=== PATIENT | male | born 1960 | race African-American/Black ===

== ENCOUNTER 2017-04-21 10:39 | Outpatient (CLI) | payer OTHER ==
[2017-04-21 11:10] LABS: Amphetamine Not Detected (NotDetected); Barbiturates Screen Not Detected (NotDetected); Benzodiazepine Screen Not Detected (NotDetected); Cocaine Metabolite Screen Not Detected (NotDetected); Methadone Not Detected (NotDetected); Methamphetamine Not Detected (NotDetected); Opiate Screen Detected (NotDetected); Phencyclidine (PCP) Not Detected (NotDetected); THC/Cannabinoid Screen Detected (NotDetected); Tricyclic Screen Not Detected (NotDetected)
[2017-04-21 11:11] LABS: Medtox Control Line Valid? VALID (VALID); Oxycodone Screen Not Detected (NotDetected)
--- NOTE | 2017-04-21 12:00 | RAD ---
TWO VIEWS LUMBAR SPINE: Date: 04-21-17 History: Back pain for five years. FINDINGS: There is an IVC filter to the right of midline at the L2-3 level. Five lumbar type vertebral bodies a re present with intact pedicles on frontal imaging. There is no anterolisthesis or retrolisthesis. There is mild disc space narrowing at L4-5 with right lateral osteophyte formation. No acute osseous abnormality. IMPRESSION: Lumbar spine degenerative change as detailed above. POS: [facility]
--- NOTE | 2017-04-21 12:01 | RAD ---
THERE VIEWS CERVICAL SPINE: Date: 04-21-17 History: Cervical spine pain, prior surgery. FINDINGS: There is extensive anterior discectomy and fusion hardware spanning the C3-4, C4-5, C5-6 and C6-7 lev els. There is no radiographic evidence for hardware failure. Vertebral body height and alignment appe ars within normal limits. The open mouth odontoid view demonstrates a normal appearing dens and C1-2 articulation. Mild anterior osteophyte formation noted at C2-3 and C7-T1. IMPRESSION: Post-operative changes as detailed above. No acute findings. POS: [facility]
== END 2017-04-21 10:40 | disposition home or self-care (01) ==
LOC: SCSER 10:39
PROVIDERS: ATTEND Psychiatry & Neurology Neurology
DX: M50.223 Other cervical disc displacement at C6-C7 level (principal); M48.061 Spinal stenosis, lumbar region without neurogenic claudication; Z98.890 Other specified postprocedural states
CPT/HCPCS: 72040; 72100; 80306

== ENCOUNTER 2017-04-28 11:56 | Outpatient (CLI) | payer MEDICARE, MEDICAID ==
--- NOTE | 2017-04-28 15:29 | MRI ---
MRI CERVICAL SPINE: 04/28/2017 HISTORY: Neck pain and back pain for five years. Cervical spine and lumbar spine surgery in the past. COMPARISON: None. TECHNIQUE: Multiplanar, multisequence MR imaging of the cervical spine is provided without contrast. FINDINGS: Extensive anterior diskectomy and fusion hardware is present, spanning the C3-C4 through C6-C7 levels , limiting detailed assessment. Sagittal STIR imaging demonstrates no focal area of osseous marrow e john. There is moderate degenerative change at the atlantoaxial interspace. The craniocervical junction ap pears intact. C2-C3: There id disk desiccation. There is no significant central canal or neural foraminal stenosi s. C3-C4: Mild facet and uncovertebral osteophyte formation noted on the left. Mild left neural forami nal stenosis. No significant central canal or right neural foraminal stenosis. C4-C5: Mild facet and uncovertebral osteophyte formation, left greater than right. Minimal disk ost eophyte complex. Partial effacement of the ventral thecal sac. No significant central canal stenosi s. Mild left neural foraminal stenosis. C5-C6: There is a disk protrusion and associated osteophyte in the left paracentral region with part ial effacement of the ventral thecal sac and a mild degree of central canal stenosis. The cervical c ord at this level demonstrates mild atrophy and demonstrates internal increased T2 signal, suggesting cervical cord myelomalacia. Mild central canal stenosis and mild bilateral neural foraminal stenosi s are noted. C6-C7: There is bilateral facet and uncovertebral osteophyte formation, left greater than right. Th ere is mild disk bulge with mild effacement of the ventral thecal sac and minimal central canal steno sis. There is moderate right and moderate/severe left neural foraminal stenosis. C7-T1: There is facet and uncovertebral osteophyte formation on the left with a moderate degree of l eft neural foraminal stenosis. There is no central canal stenosis. There is mild to moderate right neural foraminal stenosis, on the basis of facet and uncovertebral osteophyte formation. IMPRESSION: Multilevel degenerative and postoperative change within the cervical spine, as described above. Ther e is a focal area of cord atrophy and internal T2 signal intensity within the cervical cord, at C5-C6 , evidence of myelomalacia. POS: [facility]
--- NOTE | 2017-04-28 16:19 | MRI ---
LUMBAR SPINE MRI WITH AND WITHOUT CONTRAST: 04/28/17 CLINICAL HISTORY: Intervertebral disc displacement, lumbar spine. Low back pain. Reference is made to radiographs of [facility] spine 04/21/17. FINDINGS: Lumbar spine vertebral body heights are maintained. Mild disc degenerative narrowing and signal alter ation is present at L4-5 level. No paraspinous soft tissue edema. No acute marrow edema or disc space inflammation. Conus medullaris is normal in morphology and terminates at the L1 level. Postcontrast imaging reveals no pathologic, mass producing enhancement within the vertebral canal. Incidental note of a partially imaged T2 hyperintensity in the medial left kidney indicative of a cys t. There is a moderate sized cyst within the medial aspect of the lower pole right kidney. There is congenital AP diameter narrowing of the vertebral canal on the basis of congenitally shorten ed pedicles. L5-S1: No extrinsic mass effect of significance upon the thecal sac or neural foramina. L4-5: Broad based disc osteophyte complex is present. There is moderate central canal stenosis as thi s is accentuated by the congenitally shortened pedicles. There is mild bilateral neural foraminal benjamin nosis. L3-4: Mild to moderate central canal stenosis with a broad based disc osteophyte complex and mild hector ateral neural foraminal stenosis. L2-3: Mild narrowing of the central canal with a concentric disc bulge. No high grade foraminal compr omise. L1-2: No significant extrinsic mass effect upon thecal sac or neural foramina. There is mild to moderate facet osteoarthritis most notable at the L4-5 level bilaterally. IMPRESSION: Mild degenerative change which is accentuated by a prominent degree of congenital narrowing of the AP diameter of the vertebral canal. Findings are most pronounced at L4-5 with moderate degree of centra l canal stenosis and bilateral neural foraminal stenosis. POS: [facility]
== END 2017-04-28 11:57 | disposition home or self-care (01) ==
LOC: SCSMRI 11:56
PROVIDERS: ATTEND Psychiatry & Neurology Neurology
DX: M51.27 Other intervertebral disc displacement, lumbosacral region (principal); M50.223 Other cervical disc displacement at C6-C7 level; M47.816 Spondylosis without myelopathy or radiculopathy, lumbar region; M47.812 Spondylosis without myelopathy or radiculopathy, cervical region; G95.89 Other specified diseases of spinal cord; M99.83 Other biomechanical lesions of lumbar region; Z98.890 Other specified postprocedural states
CPT/HCPCS: 72141; 72158

== ENCOUNTER 2017-12-04 18:09 | Inpatient (IN) | payer MEDICARE, MEDICAID ==
[~2017-12-04 18:09] MED LIST: ISOVUE-370 76%-LOCM 1 ML ONE
[2017-12-04] MEDS ORDERED: Morphine 4 MG/ML VIAL ONE (19:37)
[2017-12-04 20:03] LABS: CKMB 0.3 ng/mL (0-6.6); Troponin I Less than 0.010 ng/mL (< 0.028)
--- NOTE | 2017-12-04 20:30 | CT ---
CT ABDOMEN AND PELVIS WITH IV CONTRAST: 12/04/17 HISTORY: Abdominal pain. Swelling. FINDINGS: No comparison. Mild atelectasis at the lung bases. Heterogeneous low density mass of the left adrenal gland measures up to 3.2 cm. Peripheral enhancement. Cysts involve each kidney. Inferior vena cava filter is present just below the level of the renal veins. At the level of the marisel ter, clot result in filling defect that extends inferiorly into each iliac vein which is expanded. So me swelling is apparent within the subcutaneous tissues about the right upper thigh. IMPRESSION: Thrombosis of the iliac veins and inferior vena cava to the level of a filter just below the level of the renal veins. Left adrenal mass. Metastatic versus primary neoplasm is of primary concern with a mass this size. Findings were called to Dr. Cortez in the Emergency Department at 2013 hours. Code CR POS: [facility]
[2017-12-04] MEDS ORDERED: Ondansetron ODT 4 MG TAB PO PRN (21:55)
[2017-12-04] MEDS ORDERED: Bisacodyl 5 MG TAB PO PRN (21:55)
[2017-12-04] MEDS ORDERED: Apixaban 5 MG TAB PO SCH (22:15)
[2017-12-04] MEDS ORDERED: Insulin Regular 300 UNITS/3 ML VIAL SC PRN (22:36)
[2017-12-04] MEDS ORDERED: Dextrose 50% Abboject 50 ML SYRINGE SLOW IVP PRN (22:36)
[2017-12-04] MEDS ORDERED: Dextrose 5% in Water 1,000 ML IV PRN (22:36)
[2017-12-05] MEDS ORDERED: Nicotine 21 MG PATCH TD SCH (00:15)
[2017-12-05 00:17] VITALS: BMI 28.5
[2017-12-05] MEDS ORDERED: Ketorolac Tromethamine 30 MG/ML VIAL IVP PRN (02:37)
[2017-12-05] MEDS ORDERED: Acetaminophen 1,000 MG in Premix Bag 1 BAG IVPB PRN (02:37)
[2017-12-05] MEDS: Acetaminophen 325 MG TAB PO PRN (04:50)
--- NOTE | 2017-12-05 07:45 | HP ---
CHIEF COMPLAINT: Bilateral lower extremity pain and swelling. HISTORIAN: The patientchaka. HISTORY OF PRESENT ILLNESS: This is a 56-year-old male with past medical history of recurrent DVTs, diabetes mellitus type 2, chronic back pain, being admitted for bilateral lower extremity pain and swelling. Per the patient, he had a DVT in 2011 and during that time, patient had IVC filter inserted. Patient states that since then he has been doing okay and he has not had any problems; however, in the past couple of days, patient has been having lower extremity swelling and pain, states that is very difficult for him to ambulate due to lower extremity pain, so this prompted the patient to go to the nearby [facility] [place]. From [place] of the abdomen and pelvis were ordered, which showed DVT that was all the way to patient's iliacs; therefore, the patient was transferred and to be evaluated in the hospital. REVIEW OF SYSTEMS: Positive for bilateral lower extremity swelling and pain, constipation, otherwise as documented in the HPI. All other systems were reviewed and are negative. PAST MEDICAL HISTORY: Significant for diabetes mellitus type 2, DVT, status post IVC filter. PAST SURGICAL HISTORY: Cervical back surgery, IVC filter placement in 2011. SOCIAL HISTORY: The patient states that he has been smoking since his 20s. The patient has been smoking 2 packs per day. Patient denies any ethanol use. Patient smokes marijuana. The patient says that he is a . Patient lives at home. FAMILY HISTORY: Reviewed and noncontributory to this visit. ALLERGIES: No known drug allergies. CURRENT MEDICATIONS: 1. The patient takes Levemir, we did not know the dose. 2. Metformin 1000 mg b.i.d. 3. Gabapentin 800 t.i.d. PHYSICAL EXAMINATION: VITAL SIGNS: In the ED, the patient's blood pressure was 134/86, pulse 86, respiratory rate 18, temperature 99.2, O2 sats 99 on room air. GENERAL: The patient is lying in bed, very anxious, who denies cigarettes. Patient is alert, oriented x3, not in acute distress, able to speak in full sentences. HEENT: Normocephalic, atraumatic. Pupils are equally round and reactive to light. Extraocular muscles are intact. No scleral icterus. Trachea is midline. NECK: No JVD. Supple. Mucous membranes are moist. LUNGS: Clear to auscultation bilaterally. No wheezing, no rales, no rhonchi is appreciated. CARDIAC: Positive S1, S2. No murmurs, no rubs, no gallops appreciated. ABDOMEN: Patient has tenderness at the suprapubic region and at the right and left lower quadrants, patient has some guarding. Nondistended abdomen. Soft, positive bowel sounds in all quadrants. EXTREMITIES: 5/5 upper extremity strength, good radial pulses bilaterally. Lower extremity: Patient has 2+ nonpitting edema at the left lower extremity and 4+ nonpitting edema at the right lower extremity. There is tenderness bilaterally at the lower extremities with palpation. There is mild erythema noted at the right lower extremity. NEUROLOGIC: Cranial nerves II through XII grossly intact. No neurological deficits noted. SKIN: Warm, dry, and intact. ED COURSE: In the ED, the patient was started on Eliquis, morphine, and normal saline. IMAGING: CT of the abdomen showed thrombosis of the iliac veins and inferior vena cava to the level of filter just below the level of the renal veins, left adrenal mass seen, size which was 3.2 cm. LABORATORY DATA: Patient's labs were benign except for glucose which was a little elevated this morning at 261. ASSESSMENT AND PLAN: 1. This is a 56-year-old male with medical history that significant for deep vein thrombosis, status post IVC filter placement, being admitted for bilateral lower extremity pain due to deep vein thrombosis. At this point, the patient has been started on anticoagulation. We have consulted Cardiovascular Surgery. We will follow up with cardiovascular surgeon for his recommendations. The patient is currently in significant pain; therefore, we will give pain medication p.r.n. for patient's pain. 2. Adrenal mass: The patient was found to have adrenal mass of 3.[address] of the abdomen and pelvis and is very concerning for possible malignancy versus a primary neoplasm. Therefore, at this point, a referral consulted Urology for possible biopsy of this mass, I think IR would be better to also look at this mass. We will follow up on their recommendations. 3. History of diabetes mellitus. We will continue patient on insulin sliding scale and his home medications. 4. Constipation. We started the patient on medication to help the patient with his bowel movement. 5. Tobacco abuse. We have explained to the patient for the importance of quitting tobacco smoking. Patient states that it is very difficult, but he is going to try and we will start the patient on nicotine patch. 6. Deep venous thrombosis and gastrointestinal prophylaxis. MTDD
[2017-12-05] MEDS: Docusate 100 MG CAP PO SCH ×2 (08:12→19:42)
[2017-12-05] MEDS: HumaLOG 300 UNITS/3 ML VIAL SC PRN ×3 (08:12→16:05)
[2017-12-05] MEDS ORDERED: Enoxaparin Sodium 60 MG/0.6 ML SYRINGE SC STA (10:26)
[2017-12-05] MEDS: Ketorolac Tromethamine 30 MG/ML VIAL IVP PRN ×2 (10:43→19:43)
[2017-12-05] MEDS ORDERED: Enoxaparin Sodium 100 MG/ML SYRINGE SC SCH (11:00)
[2017-12-05] MEDS ORDERED: Lorazepam 2 MG/ML VIAL SLOW IVP PRN (11:04)
--- NOTE | 2017-12-05 11:21 | CON ---
DATE OF CONSULTATION: 12/05/2017 HISTORY OF PRESENT ILLNESS: This is a 56-year-old gentleman with a history of chronic back problems who in 2011 was found to have DVT prior to having a back surgery. He gave himself Lovenox injections for a short period of time and then a filter was placed and then he had his back surgery. He has be en having some low back discomfort for about 2 months; however, the past few days has noticed swellin g in his lower extremities, right worse than left. CT scan done in [place] showed a thrombus in the IVC and iliac veins and he was transferred here. PAST MEDICAL AND SURGICAL HISTORY: Includes diabetes mellitus, long-term smoking history, previous b ack surgery and IVC filter placement. He also has type 2 diabetes mellitus. SOCIAL HISTORY: He smokes 2 packs a day. He is a , lives at home and moved here from [place] . He sees Dr. Justice and PA. MEDICATIONS: At home include metformin, gabapentin, and Levemir. PHYSICAL EXAMINATION: GENERAL: Alert, cooperative gentleman in mild discomfort in lower extremities, primarily the right h e says. NECK: No carotid bruits, no adenopathy. LUNGS: Clear to auscultation anteriorly. CARDIAC: Regular rate and rhythm. No murmurs. ABDOMEN: Mild discomfort in the lower abdomen to palpation. EXTREMITIES: Lower extremities: He has mild edema of the left lower extremity and moderate edema of the right lower extremity including a thigh, most prominent around the knee and less so at the foot level. He has a palpable left popliteal pulse, but no pedal pulses in either foot. I cannot feel a right popliteal pulse, but he does have significant edema here making that difficult to palpate, gerald g with tenderness to deep palpation. Both feet are warm with good capillary fill. ASSESSMENT AND PLAN: At this time, the patient requires Lovenox and switched to NOAC and then long-t erm anticoagulation for this problem. No indication for thrombolysis. I also discussed smoking cess ation with the patient. In the workup of his swelling, he was noted to have a left adrenal mass whic h is fairly sizable and a CT scan of his chest reveals no obvious lung cancer as a possible cause for metastatic disease.
--- NOTE | 2017-12-05 11:35 | PDOC.PN ---
- Subjective Encounter Start Date: 12/05/17 Encounter Start Time: 10:00 Subjective: c/o pain in right LE with swelling -: no sob - Objective Resuscitation Status: Resuscitation Status FULL:Full Resuscitation MAR Reviewed: Yes Vital Signs & Weight: Vital Signs (12 hours) Temp Pulse Resp BP BP Pulse Ox 12/05/17 08:15 99.3 F 81 20 12/05/17 07:21 99.3 F 81 20 111/69 98 12/05/17 04:40 99.9 F H 85 18 113/66 97 12/05/17 00:18 98.7 F 83 20 Weight Weight 210 lb 6.4 oz I&O: 12/04/17 12/05/17 12/06/17 06:59 06:59 06:59 Intake Total 480 200 Balance 480 200 Additional Labs: Accuchecks 12/05/17 12/05/17 12/04/17 11:13 07:31 23:31 POC Glucose 223 H 216 H 261 H Phys Exam - Physical Examination HEENT: PERRLA, moist MMs Neck: no JVD, supple Respiratory: no wheezing, no rales Cardiovascular: RRR, no significant murmur Gastrointestinal: soft, non-tender, positive bowel sounds Musculoskeletal: pulses present Right LE edema Neurological: non-focal, moves all 4 limbs Psychiatric: normal affect, A&O x 3 Dx/Plan (1) DVT (deep venous thrombosis) Code(s): I82.409 - ACUTE EMBOLISM AND THOMBOS UNSP DEEP VN UNSP LOWER EXTREMITY Status: Acute Qualifiers: DVT location: lower extremity Affected thrombotic vein of extremity: iliac Chronicity: acute Laterality: bilateral Qualified Code(s): I82.423 - Acute embolism and thrombosis of iliac vein, bilateral (2) ivc filter with thrombosis Status: Acute (3) Left adrenal mass Code(s): E27.9 - DISORDER OF ADRENAL GLAND, UNSPECIFIED Status: Acute (4) DM type 2 (diabetes mellitus, type 2) Status: Chronic Qualifiers: Diabetes mellitus assisted insulin use: without termite control technician use Diabetes mellitus complication status: with unspecified complications Qualified Code(s) : E11.8 - Type 2 diabetes mellitus with unspecified complications (5) Tobacco abuse Code(s): Z72.0 - TOBACCO USE Status: Chronic - Plan for MRI adrenal protocol, is not accessible for percut Bx by IR -: lovenox q12h, will switch to noac on discharge -: has large thrombus burden -: hemodynamically stable -: change status to inpatient * . continue lantus, hold metformin for today D/w and urologist . Review of Systems - Medications/Allergies Allergies/Adverse Reactions: Allergies Allergy/AdvReac Type Severity Reaction Status Date / Time No Known Drug Allergies Allergy Verified 12/05/17 00:03 Medications: Current Medications Acetaminophen (Tylenol) 650 mg PO Q4H PRN PRN Reason: Headache/Fever or Pain Last Admin: 12/05/17 04:50 Dose: 650 mg Bisacodyl (Dulcolax) 10 mg PO DAILYPRN PRN PRN Reason: Constipation Last Admin: 12/05/17 08:12 Dose: 10 mg Dextrose/Water (Dextrose 50%) 25 gm SLOW IVP PRN PRN PRN Reason: Hypoglycemia Docusate Sodium (Colace) 100 mg PO BID NIKKY Last Admin: 12/05/17 08:12 Dose: 100 mg Enoxaparin Sodium (Lovenox) 90 mg SC NOW NIKKY Stop: 12/05/17 12:00 Last Admin: 12/05/17 11:21 Dose: 90 mg Enoxaparin Sodium (Lovenox) 90 mg SC 0900,2100 NIKKY Glucagon (Glucagon) 1 mg IM PRN PRN PRN Reason: Hypoglycemia Dextrose/Water (D5w) 1,000 mls @ 0 mls/hr IV .Q0M PRN PRN Reason: Hypoglycemia Acetaminophen 1,000 mg/ Device 100 mls @ 400 mls/hr IVPB Q6H PRN PRN Reason: Mild Pain (1-3) Stop: 12/06/17 02:38 Insulin Human Lispro (Humalog) 0 units SC .MILD SLIDING SCALE PRN PRN Reason: Mild Correctional Scale Last Admin: 12/05/17 11:21 Dose: 3 unit Insulin Human Regular (Humulin R) 0 units SC .MILD SLIDING SCALE PRN PRN Reason: Mild Correctional Scale Ketorolac Tromethamine (Toradol) 15 mg IVP Q6H PRN PRN Reason: Moderate Pain (4-6) Stop: 12/10/17 07:48 Last Admin: 12/05/17 10:43 Dose: 15 mg Lactulose (Lactulose) 20 gm PO DAILYPRN PRN PRN Reason: Constipation Lorazepam (Ativan) 1 mg SLOW IVP Q4H PRN PRN Reason: Anxiety/Agitation Nicotine (Nicoderm Patch) 21 mg TD Q24HR NIKKY Ondansetron HCl (Zofran Odt) 4 mg PO Q6H PRN PRN Reason: Nausea/Vomiting Last Admin: 12/05/17 08:12 Dose: 4 mg Sodium Chloride (Flush - Normal Saline) 10 ml IVF Q12HR NIKKY Last Admin: 12/05/17 08:14 Dose: 10 ml Sodium Chloride (Flush - Normal Saline) 10 ml IVF PRN PRN PRN Reason: Saline Flush
--- NOTE | 2017-12-05 12:23 | CT ---
CHEST CT SCAN WITHOUT IV CONTRAST: HISTORY: A 56-year-old male with a history of abdominal pain. History of remote DVT with IVC filter in place. FINDINGS: Left lower extremity swelling and pain. There are some old granuloma calcifications within the media stinum and left upper lobe. There is no mediastinal mass or adenopathy. No pleural effusion or heidi cardial effusion. There is a 3 cm diameter left infrarenal mass which has low attenuation, evidence for an adenoma. There is some minimal residual contrast in the renal collecting systems from prior C T last night. Small left renal cyst. There are some scattered linear parenchymal changes in both shireen ngs having more a chronic appearance. No evidence for metastasis. IMPRESSION: Scattered linear and minimal pleural-based parenchymal changes, evidence for some chronic lung change . Old granulomatous disease. No mediastinal mass or adenopathy. No pulmonary metaphysis or pleural effusion or pericardial effusion. A 3 cm diameter left adrenal mass, evidence for an adenoma. POS: [facility]
--- NOTE | 2017-12-05 14:32 | CON ---
DATE OF CONSULTATION: 12/05/2017 REASON FOR CONSULTATION: Left adrenal mass. HISTORY OF PRESENT ILLNESS: Mr. Ruffin is a 56-year-old male with a past medical history significan t for recurrent deep venous thrombosis of his lower extremities, type 2 diabetes mellitus, extensive smoking history, chronic back pain, who was admitted for bilateral lower extremity pain and swelling. The patient reportedly was diagnosed with a DVT prior to a spine surgery in 2011. At that time, he had an IVC filter placed. Over the past couple of days, the patient has had worsening lower extremi ty swelling and pain and has had difficulty ambulating. The patient presented to an urgent care [facility] in [place], as he currently lives in [place]. A CT of the abdomen and pelvis was perform ed, which demonstrated a DVT involving the patient's iliacs all the way down distally on the right si de greater than the left. He was transferred to [facility] in [place], [place]. Inci dentally, there was also a 3.2 cm peripherally enhancing left adrenal mass noted on CT abdomen and pe lvis with contrast. Urology was consulted for further evaluation. The patient was admitted to the hospitalist service. He had a CT of the chest performed, which repor tedly was negative for any pulmonary nodules or other concerning findings. The patient reports mild right-sided pelvic pain, but otherwise no abdominal pain. He continues to have right lower extremity swelling and pain. He has no lower urinary tract symptoms. No family history of genitourinary darshan gnancy to his knowledge. No gross hematuria. No other complaints at this time. REVIEW OF SYSTEMS: Full 12-point review of systems was performed and was negative other than that me ntioned in the HPI. PAST MEDICAL HISTORY: 1. Type 2 diabetes mellitus. 2. Recurrent deep venous thrombosis. PAST SURGICAL HISTORY: 1. Spine surgery of unknown type. 2. IVC filter placement in 2011. SOCIAL HISTORY: The patient has been smoking 2 packs per day since his 20s; he continues to smoke 2 packs per day. No alcohol. Patient lives at home alone and he is disabled. Does not currently work . FAMILY HISTORY: Noncontributory. ALLERGIES: No known drug allergies. OUTPATIENT MEDICATIONS: 1. Levemir. 2. Metformin 1000 mg p.o. b.i.d. 3. Gabapentin 800 mg p.o. t.i.d. PHYSICAL EXAMINATION: VITAL SIGNS: Blood pressure 134/86, pulse 86, respirations 18, temperature 99.2, oxygen saturation 9 9% on room air. GENERAL: He is alert and oriented x3 in no apparent distress. HEENT: Normocephalic, atraumatic. NECK: Supple, no masses or lymphadenopathy. CARDIOVASCULAR: Regular rate and rhythm. PULMONARY: Breathing unlabored. No wheezing. ABDOMEN: Soft, nontender/nondistended, mild right low pelvic tenderness to deep palpation, no reboun d or guarding. GENITOURINARY: Uncircumcised penis without concerning lesion. Scrotum normal. Testes and bilateral epididymis are palpably normal without masses. EXTREMITIES: A 2+ nonpitting edema to the right lower extremity along its entire length, mild nonpit ting edema to the left lower extremity. NEUROLOGIC: No focal deficits. RADIOLOGY DATA: CT of the abdomen and pelvis with contrast was reviewed. There is a blood clot of t he iliac veins and IVC to the level of the IVC filter just below the level of the renal veins. A per ipherally enhancing left adrenal mass, 3.2 cm in diameter, was noted as well. There is rather low de nsity centrally in this mass. ASSESSMENT AND PLAN: This is a 56-year-old male with extensive deep venous thrombosis extending up t he iliacs into his inferior vena cava as well as incidentally noted 3.2 cm left adrenal mass. PLAN: I discussed the natural history and clinical implications of adrenal masses with the patient i n detail. I discussed potential etiologies including benign adrenal adenoma as well as both primary and metastatic malignancy. I discussed the case with the patient's primary team as well as Radiology . Biopsy of this lesion would be difficult given its location. Given the fact that it is unclear wh ether or not this meets criteria to be an adrenal adenoma, we will perform an MRI adrenal mass protoc ol. If this is determined to be an adenoma, this can be monitored. No intervention will be necessar y. If more concerning for malignancy, the patient may require surgical intervention. The patient wi ll require systemic anticoagulation for his current extensive deep venous thrombosis, timing of which will depend on findings of the MRI. Thank you for allowing me to participate in the care of this patient. We will continue to follow.
[2017-12-05] MEDS: Gabapentin 400 MG CAP PO SCH ×2 (16:02→19:42)
[2017-12-05] MEDS: Insulin Glargine 34 UNITS in Pre-Filled Syringe 1 EACH SC SCH (19:42)
[2017-12-05] MEDS: Enoxaparin Sodium 100 MG/ML SYRINGE SC SCH (19:42)
[2017-12-05] MEDS: Nicotine 21 MG PATCH TD SCH (19:44)
[2017-12-05] MEDS ORDERED: INSULIN DETEMIR 34 UNIT SQ SCH (21:00)
[2017-12-05] MEDS ORDERED: Enoxaparin Sodium 60 MG/0.6 ML SYRINGE SC SCH (21:00)
[2017-12-06] MEDS: Ketorolac Tromethamine 30 MG/ML VIAL IVP PRN ×2 (03:17→14:36)
[2017-12-06] MEDS: Gabapentin 400 MG CAP PO SCH ×3 (08:53→20:00)
[2017-12-06] MEDS: busPIRone HCl 5 MG TAB PO SCH (08:53)
[2017-12-06] MEDS: Docusate 100 MG CAP PO SCH ×2 (08:54→20:00)
[2017-12-06] MEDS: Enoxaparin Sodium 100 MG/ML SYRINGE SC SCH ×2 (09:33→20:04)
--- NOTE | 2017-12-06 10:53 | PDOC.PN ---
- Subjective Encounter Start Date: 12/06/17 Encounter Start Time: 08:45 Subjective: right leg pain is slightly better but still hurts -: no sob or chest pain - Objective Resuscitation Status: Resuscitation Status FULL:Full Resuscitation MAR Reviewed: Yes Vital Signs & Weight: Vital Signs (12 hours) Temp Pulse Resp BP Pulse Ox 12/06/17 08:15 99.3 F 73 18 108/71 99 12/05/17 23:07 98.7 F Weight Weight 210 lb 6.4 oz I&O: 12/05/17 12/06/17 12/07/17 06:59 06:59 06:59 Intake Total 480 810 Output Total 650 Balance 480 160 Additional Labs: Accuchecks 12/06/17 12/05/17 12/05/17 04:26 20:15 16:04 POC Glucose 165 H 209 H 205 H 12/05/17 11:13 POC Glucose 223 H Phys Exam - Physical Examination HEENT: PERRLA, moist MMs Neck: no JVD, supple Respiratory: no wheezing, no rales Cardiovascular: RRR, no significant murmur Gastrointestinal: soft, non-tender, positive bowel sounds Musculoskeletal: pulses present, edema present right LE severe edema is slowly receding, less tender this am than yesterda Neurological: non-focal, moves all 4 limbs Psychiatric: normal affect, A&O x 3 Dx/Plan (1) DVT (deep venous thrombosis) Code(s): I82.409 - ACUTE EMBOLISM AND THOMBOS UNSP DEEP VN UNSP LOWER EXTREMITY Status: Acute Qualifiers: DVT location: lower extremity Affected thrombotic vein of extremity: iliac Chronicity: acute Laterality: bilateral Qualified Code(s): I82.423 - Acute embolism and thrombosis of iliac vein, bilateral (2) ivc filter with thrombosis Status: Acute (3) Left adrenal mass Code(s): E27.9 - DISORDER OF ADRENAL GLAND, UNSPECIFIED Status: Acute (4) DM type 2 (diabetes mellitus, type 2) Status: Chronic Qualifiers: Diabetes mellitus director long term care insulin use: without detention use Diabetes mellitus complication status: with unspecified complications Qualified Code(s) : E11.8 - Type 2 diabetes mellitus with unspecified complications (5) Tobacco abuse Code(s): Z72.0 - TOBACCO USE Status: Chronic - Plan is on lovenox full dose q12h -: MRI adrenal gland results pending -: to ambulate in hallway as tolerated -: may wear rolo hose (will need a larger size) to reduce edema and pain a bit -: is on toradol for pain, continue lantus and neurontin, add asp * . Review of Systems - Medications/Allergies Allergies/Adverse Reactions: Allergies Allergy/AdvReac Type Severity Reaction Status Date / Time No Known Drug Allergies Allergy Verified 12/05/17 00:03 Medications: Current Medications Acetaminophen (Tylenol) 650 mg PO Q4H PRN PRN Reason: Headache/Fever or Pain Last Admin: 12/05/17 04:50 Dose: 650 mg Bisacodyl (Dulcolax) 10 mg PO DAILYPRN PRN PRN Reason: Constipation Last Admin: 12/05/17 08:12 Dose: 10 mg Buspirone HCl (Buspar) 5 mg PO DAILY [facility] Last Admin: 12/06/17 08:53 Dose: 5 mg Dextrose/Water (Dextrose 50%) 25 gm SLOW IVP PRN PRN PRN Reason: Hypoglycemia Docusate Sodium (Colace) 100 mg PO BID [facility] Last Admin: 12/06/17 08:54 Dose: 100 mg Enoxaparin Sodium (Lovenox) 90 mg SC 0900,2100 [facility] Last Admin: 12/06/17 09:33 Dose: 90 mg Gabapentin (Neurontin) 800 mg PO TID [facility] Last Admin: 12/06/17 08:53 Dose: 800 mg Glucagon (Glucagon) 1 mg IM PRN PRN PRN Reason: Hypoglycemia Dextrose/Water (D5w) 1,000 mls @ 0 mls/hr IV .Q0M PRN PRN Reason: Hypoglycemia Insulin Glargine 34 units/ (Miscellaneous Medication) 0.34 mls @ 0 mls/hr SC [facility] Last Admin: 12/05/17 19:42 Dose: 0.34 mls Insulin Human Lispro (Humalog) 0 units SC .MILD SLIDING SCALE PRN PRN Reason: Mild Correctional Scale Last Admin: 12/05/17 16:05 Dose: 3 unit Insulin Human Regular (Humulin R) 0 units SC .MILD SLIDING SCALE PRN PRN Reason: Mild Correctional Scale Ketorolac Tromethamine (Toradol) 15 mg IVP Q6H PRN PRN Reason: Moderate Pain (4-6) Stop: 12/10/17 07:48 Last Admin: 12/06/17 03:17 Dose: 15 mg Lactulose (Lactulose) 20 gm PO DAILYPRN PRN PRN Reason: Constipation Lorazepam (Ativan) 1 mg SLOW IVP Q4H PRN PRN Reason: Anxiety/Agitation Nicotine (Nicoderm Patch) 21 mg TD Q24HR [facility] Last Admin: 12/05/17 19:44 Dose: Not Given Ondansetron HCl (Zofran Odt) 4 mg PO Q6H PRN PRN Reason: Nausea/Vomiting Last Admin: 12/05/17 08:12 Dose: 4 mg Sodium Chloride (Flush - Normal Saline) 10 ml IVF Q12HR [facility] Last Admin: 12/06/17 09:34 Dose: 10 ml Sodium Chloride (Flush - Normal Saline) 10 ml IVF PRN PRN PRN Reason: Saline Flush
[2017-12-06 12:14] LABS: #Basophils 0.1 thou/uL (0.0-0.2); #Eosinphils 0.4 thou/uL (0.0-0.7); #Lymphocytes 2.3 thou/uL (1.20-3.40); #Monocytes 0.6 thou/uL (0.11-0.59); #Neutrophils 4.6 thou/uL (1.40-6.50); %Basophils 0.7 % (0.0-1.0); %Eosinophils 4.5 % (0.0-10.0); %Lymphocytes 29.3 % (21.0-51.0); %Monocytes 7.1 % (0.0-10.0); %Neutrophils 58.4 % (42.0-75.0); Hemoglobin 11.1 g/dL (14.0-18.0); Mean Corpuscular HGB CONC 34.6 g/dL (32.0-36.0); Mean Corpuscular Hemoglobin 32.4 pg (27.0-31.0); Mean Corpuscular Volume 93.6 fL (78.0-98.0); Platelet Count 226 thou/uL (130-400); RBC Distribution Width 11.9 % (11.5-14.5); Red Blood Cell (RBC) Count 3.42 mill/uL (4.70-6.10); White Blood Cell (WBC) Count 7.8 thou/uL (4.8-10.8)
[2017-12-06 12:21] LABS: INR-International Normal Ratio 1.1; PTT 46.6 SEC (22.9-36.1)
[2017-12-06 12:32] LABS: Anion Gap 12 mmol/L (10-20); BUN (Urea Nitrogen) 21 mg/dL (8.4-25.7); Calc. Creatinine Clearance 113 mL/min (70-130); Calcium 9.3 mg/dL (7.8-10.44); Carbon Dioxide 26 mmol/L (22-29); Chloride 102 mmol/L (98-107); Estimated GFR-MDRD Greater than 90; Glucose 162 mg/dL (70-105); Potassium 3.8 mmol/L (3.5-5.1); Sodium 136 mmol/L (136-145)
[2017-12-06] MEDS ORDERED: Bisacodyl 10 MG SUPP PR PRN (14:38)
[2017-12-06] MEDS ORDERED: Fleet Enema 133 ML BOT PR SCH (14:45)
[2017-12-06] MEDS: HumaLOG 300 UNITS/3 ML VIAL SC PRN (17:44)
[2017-12-06] MEDS: Nicotine 21 MG PATCH TD SCH (20:00)
[2017-12-06] MEDS: Insulin Glargine 34 UNITS in Pre-Filled Syringe 1 EACH SC SCH (20:01)
[2017-12-07] MEDS: Acetaminophen 325 MG TAB PO PRN ×2 (00:38→21:13)
[2017-12-07] MEDS: Ketorolac Tromethamine 30 MG/ML VIAL IVP PRN ×3 (00:43→18:24)
[2017-12-07 05:28] LABS: Anion Gap 12 mmol/L (10-20); BUN (Urea Nitrogen) 22 mg/dL (8.4-25.7); Calc. Creatinine Clearance 97 mL/min (70-130); Carbon Dioxide 25 mmol/L (22-29); Chloride 103 mmol/L (98-107); Estimated GFR-MDRD 79; Glucose 101 mg/dL (70-105); Potassium 3.9 mmol/L (3.5-5.1); Sodium 136 mmol/L (136-145)
[2017-12-07] MEDS: Enoxaparin Sodium 100 MG/ML SYRINGE SC SCH (08:37)
[2017-12-07] MEDS: Gabapentin 400 MG CAP PO SCH ×3 (08:37→21:14)
[2017-12-07] MEDS: busPIRone HCl 5 MG TAB PO SCH (08:37)
[2017-12-07] MEDS: Docusate 100 MG CAP PO SCH ×2 (08:38→21:16)
[2017-12-07] MEDS: Polyethylene Glycol 3350 17 GM Packet PO SCH (08:38)
--- NOTE | 2017-12-07 10:23 | MRI ---
MRI ABDOMEN WITH AND WITHOUT IV CONTRAST: HISTORY: Left adrenal mass, abnormal CT scan of 12/04/17; abdominal pain. FINDINGS: Correlation is made with the CT scan of the abdomen and pelvis dated 12/04/17. There are a couple of punctate cysts in the posterior segment of the right lobe of the liver. Bilate ral renal cysts are present. No abnormal biliary ductal dilatation is seen. There is a 7 mm cyst in the posterior aspect of the tail of the pancreas. There is an 8 mm tiny nodule arising from the lateral limb of the right adrenal gland with loss of si gnal on the [id number] images, consistent with a benign adenoma. The 3.2 cm left adrenal mass also demonstrates minimal loss on the [id number] images with an adrenal to spleen CSI ratio of 0.45 and an adrenal signal intensity index of 54.5%, consistent with a benign lipid-rich adenoma. No free fluid or lymphadenopathy is seen. There is artifact from an IVC filter. The gallbladder is normal. IMPRESSION: 1. Liver and renal cysts. 2. A 7 mm cyst in the tail of the pancreas. A followup exam should be obtained in 6 months. 3. Bilateral adrenal adenomas. CODE T POS: [facility]
--- NOTE | 2017-12-07 13:45 | PDOC.PN ---
- Subjective Encounter Start Date: 12/07/17 Encounter Start Time: 11:10 Subjective: right leg pain and swelling is getting better, no sob -: has ambulated a bit in the hallway - Objective Resuscitation Status: Resuscitation Status FULL:Full Resuscitation MAR Reviewed: Yes Vital Signs & Weight: Vital Signs (12 hours) Temp Pulse Resp BP Pulse Ox 12/07/17 11:32 98.2 F 81 18 135/83 97 12/07/17 08:07 98.7 F 70 18 120/80 100 12/07/17 08:00 98.7 F 70 18 100 Weight Weight 210 lb 6.4 oz I&O: 12/06/17 12/07/17 12/08/17 06:59 06:59 06:59 Intake Total 810 1520 240 Output Total 650 450 Balance 160 1070 240 Result Diagrams: 12/06/17 12:01 12/07/17 04:41 Additional Labs: Accuchecks 12/07/17 12/07/17 12/06/17 11:34 04:31 20:22 POC Glucose 126 H 113 H 169 H 12/06/17 16:29 POC Glucose 236 H Phys Exam - Physical Examination HEENT: PERRLA, moist MMs Neck: no JVD, supple Respiratory: no wheezing, no rales Cardiovascular: RRR, no significant murmur Gastrointestinal: soft, non-tender, positive bowel sounds Musculoskeletal: pulses present, edema present Neurological: non-focal, moves all 4 limbs Psychiatric: normal affect, A&O x 3 Dx/Plan (1) DVT (deep venous thrombosis) Code(s): I82.409 - ACUTE EMBOLISM AND THOMBOS UNSP DEEP VN UNSP LOWER EXTREMITY Status: Acute Qualifiers: DVT location: lower extremity Affected thrombotic vein of extremity: iliac Chronicity: acute Laterality: bilateral Qualified Code(s): I82.423 - Acute embolism and thrombosis of iliac vein, bilateral (2) ivc filter with thrombosis Status: Acute (3) Left adrenal mass Code(s): E27.9 - DISORDER OF ADRENAL GLAND, UNSPECIFIED Status: Acute Comment: has b/l adrenal adenomas per MRI (4) DM type 2 (diabetes mellitus, type 2) Status: Chronic Qualifiers: Diabetes mellitus mcc insulin use: without mcc use Diabetes mellitus complication status: with unspecified complications Qualified Code(s) : E11.8 - Type 2 diabetes mellitus with unspecified complications (5) Tobacco abuse Code(s): Z72.0 - TOBACCO USE Status: Chronic - Plan on lovenox full dose, will start eliquis this evening -: MRI results noted, has b/l adrenal adenomas -: on asp, buspar and lantus -: to ambulate in hallway, rolo hose to right LE * . Review of Systems - Medications/Allergies Allergies/Adverse Reactions: Allergies Allergy/AdvReac Type Severity Reaction Status Date / Time No Known Drug Allergies Allergy Verified 12/05/17 00:03 Medications: Current Medications Acetaminophen (Tylenol) 650 mg PO Q4H PRN PRN Reason: Headache/Fever or Pain Last Admin: 12/07/17 00:38 Dose: 650 mg Aspirin (Aspirin Chewable) 81 mg PO DAILY [facility] Last Admin: 12/07/17 08:37 Dose: 81 mg Bisacodyl (Dulcolax) 10 mg PO DAILYPRN PRN PRN Reason: Constipation Last Admin: 12/05/17 08:12 Dose: 10 mg Bisacodyl (Dulcolax) [address] Q8H PRN PRN Reason: Constipation Buspirone HCl (Buspar) 5 mg PO DAILY [facility] Last Admin: 12/07/17 08:37 Dose: 5 mg Dextrose/Water (Dextrose 50%) 25 gm SLOW IVP PRN PRN PRN Reason: Hypoglycemia Docusate Sodium (Colace) 100 mg PO BID [facility] Last Admin: 12/07/17 08:38 Dose: 100 mg Enoxaparin Sodium (Lovenox) 90 mg SC 0900,2100 [facility] Last Admin: 12/07/17 08:37 Dose: 90 mg Gabapentin (Neurontin) 800 mg PO TID [facility] Last Admin: 12/07/17 08:37 Dose: 800 mg Glucagon (Glucagon) 1 mg IM PRN PRN PRN Reason: Hypoglycemia Dextrose/Water (D5w) 1,000 mls @ 0 mls/hr IV .Q0M PRN PRN Reason: Hypoglycemia Insulin Glargine 34 units/ (Miscellaneous Medication) 0.34 mls @ 0 mls/hr SC HS [facility] Last Admin: 12/06/17 20:01 Dose: 0.34 mls Insulin Human Lispro (Humalog) 0 units SC .MILD SLIDING SCALE PRN PRN Reason: Mild Correctional Scale Last Admin: 12/06/17 17:44 Dose: 4 unit Insulin Human Regular (Humulin R) 0 units SC .MILD SLIDING SCALE PRN PRN Reason: Mild Correctional Scale Ketorolac Tromethamine (Toradol) 15 mg IVP Q6H PRN PRN Reason: Moderate Pain (4-6) Stop: 12/10/17 07:48 Last Admin: 12/07/17 12:37 Dose: 15 mg Lactulose (Lactulose) 20 gm PO DAILYPRN PRN PRN Reason: Constipation Last Admin: 12/06/17 14:41 Dose: 20 gm Lorazepam (Ativan) 1 mg SLOW IVP Q4H PRN PRN Reason: Anxiety/Agitation Nicotine (Nicoderm Patch) 21 mg TD Q24HR [facility] Last Admin: 12/06/17 20:00 Dose: 21 mg Ondansetron HCl (Zofran Odt) 4 mg PO Q6H PRN PRN Reason: Nausea/Vomiting Last Admin: 12/05/17 08:12 Dose: 4 mg Polyethylene Glycol (Miralax) 17 gm PO DAILY [facility] Last Admin: 12/07/17 08:38 Dose: 17 gm Sodium Chloride (Flush - Normal Saline) 10 ml IVF Q12HR [facility] Last Admin: 12/07/17 08:38 Dose: 10 ml Sodium Chloride (Flush - Normal Saline) 10 ml IVF PRN PRN PRN Reason: Saline Flush
[2017-12-07] MEDS: HumaLOG 300 UNITS/3 ML VIAL SC PRN (18:35)
[2017-12-07] MEDS: Apixaban 5 MG TAB PO SCH (21:14)
[2017-12-07] MEDS: Insulin Glargine 34 UNITS in Pre-Filled Syringe 1 EACH SC SCH (21:22)
[2017-12-07] MEDS: Nicotine 21 MG PATCH TD SCH (22:09)
--- NOTE | 2017-12-07 22:49 | PRG ---
DATE OF SERVICE: 12/07/2017 SUBJECTIVE: Mr. Newman is doing well. Denies complaints. He reports the pain is improving secon felix to blood clot. He had an MRI of his abdomen performed over the weekend. He has no other compla ints. OBJECTIVE: VITAL SIGNS: Temperature is 98.7, heart rate 70, respirations 18, oxygen saturation 100% on room air . GENERAL: Alert and oriented x3, no apparent distress. CARDIOVASCULAR: Regular rate and rhythm. PULMONARY: Breathing unlabored. ABDOMEN: Soft, nontender/nondistended. EXTREMITIES: Right lower extremity 4+ nonpitting edema. NEUROLOGIC: No focal deficits. RADIOLOGY DATA: MRI of the abdomen, adrenal mass protocol. This demonstrated bilateral adrenal liliana omas. The 3.2 cm left adrenal mass demonstrates minimal loss on [id number] images consistent with a lipid-rich adenoma. ASSESSMENT AND PLAN: A 56-year-old male with left adrenal mass as well as other acute and chronic me dical problems. Reviewed the MRI results with the patient. I explained that this appears to be a le ft adrenal adenoma, which is a benign lesion. It is rather large at 3.2 cm, but no intervention is n ecessary. We will follow this with surveillance imaging. There is no indication for surgical interv ention at this time.
[2017-12-07] MEDS: Melatonin 3 MG TAB PO PRN (23:47)
[2017-12-08] MEDS: Docusate 100 MG CAP PO SCH ×2 (09:25→20:25)
[2017-12-08] MEDS: busPIRone HCl 5 MG TAB PO SCH (09:25)
[2017-12-08] MEDS: Acetaminophen 325 MG TAB PO PRN (09:25)
[2017-12-08] MEDS: Apixaban 5 MG TAB PO SCH ×2 (09:25→20:23)
[2017-12-08] MEDS: Polyethylene Glycol 3350 17 GM Packet PO SCH (09:25)
[2017-12-08] MEDS: Gabapentin 400 MG CAP PO SCH ×3 (09:25→20:25)
[2017-12-08] MEDS: HumaLOG 300 UNITS/3 ML VIAL SC PRN ×2 (12:48→17:07)
--- NOTE | 2017-12-08 14:55 | PDOC.PN ---
- Subjective Encounter Start Date: 12/08/17 Encounter Start Time: 11:15 Subjective: c/o fever this am, no cough -: is amb in room - Objective Resuscitation Status: Resuscitation Status FULL:Full Resuscitation MAR Reviewed: Yes Vital Signs & Weight: Vital Signs (12 hours) Temp Pulse Resp BP BP Pulse Ox 12/08/17 12:00 99.2 F 88 18 108/76 96 12/08/17 08:00 100.9 F H 81 18 115/72 97 12/08/17 04:00 100.2 F H 76 20 118/73 94 L Weight Weight 210 lb 6.4 oz I&O: 12/07/17 12/08/17 12/09/17 06:59 06:59 06:59 Intake Total 1520 1320 480 Output Total 450 325 Balance 1070 995 480 Result Diagrams: 12/06/17 12:01 12/07/17 04:41 Additional Labs: Accuchecks 12/08/17 12/08/17 12/07/17 11:18 04:20 19:25 POC Glucose 235 H 133 H 232 H 12/07/17 17:10 POC Glucose 171 H Phys Exam - Physical Examination HEENT: PERRLA, moist MMs Neck: no JVD, supple Respiratory: no wheezing, no rales Cardiovascular: RRR, no significant murmur Gastrointestinal: soft, non-tender, positive bowel sounds Musculoskeletal: pulses present, edema present right LE edema is slowly receding Neurological: non-focal, moves all 4 limbs Psychiatric: normal affect, A&O x 3 Dx/Plan (1) DVT (deep venous thrombosis) Code(s): I82.409 - ACUTE EMBOLISM AND THOMBOS UNSP DEEP VN UNSP LOWER EXTREMITY Status: Acute Qualifiers: DVT location: lower extremity Affected thrombotic vein of extremity: iliac Chronicity: acute Laterality: bilateral Qualified Code(s): I82.423 - Acute embolism and thrombosis of iliac vein, bilateral (2) ivc filter with thrombosis Status: Acute (3) Left adrenal mass Code(s): E27.9 - DISORDER OF ADRENAL GLAND, UNSPECIFIED Status: Acute Comment: has b/l adrenal adenomas per MRI (4) DM type 2 (diabetes mellitus, type 2) Status: Chronic Qualifiers: Diabetes mellitus fpc insulin use: without buttermaker continuous churn use Diabetes mellitus complication status: with unspecified complications Qualified Code(s) : E11.8 - Type 2 diabetes mellitus with unspecified complications (5) Tobacco abuse Code(s): Z72.0 - TOBACCO USE Status: Chronic - Plan urine culture -: start levaquin for likely uti -: fever due to either uti or dvt -: dc plan in am -: is on eliquis, to wear rolo hose over right leg to reduce swelling * . Review of Systems - Medications/Allergies Allergies/Adverse Reactions: Allergies Allergy/AdvReac Type Severity Reaction Status Date / Time No Known Drug Allergies Allergy Verified 12/05/17 00:03 Medications: Current Medications Acetaminophen (Tylenol) 650 mg PO Q4H PRN PRN Reason: Headache/Fever or Pain Last Admin: 12/08/17 09:25 Dose: 650 mg Apixaban (Eliquis) 10 mg PO BID [facility] Last Admin: 12/08/17 09:25 Dose: 10 mg Aspirin (Aspirin Chewable) 81 mg PO DAILY [facility] Last Admin: 12/08/17 09:25 Dose: 81 mg Bisacodyl (Dulcolax) 10 mg PO DAILYPRN PRN PRN Reason: Constipation Last Admin: 12/05/17 08:12 Dose: 10 mg Bisacodyl (Dulcolax) 10 mg MO Q8H PRN PRN Reason: Constipation Buspirone HCl (Buspar) 5 mg PO DAILY [facility] Last Admin: 12/08/17 09:25 Dose: 5 mg Dextrose/Water (Dextrose 50%) 25 gm SLOW IVP PRN PRN PRN Reason: Hypoglycemia Docusate Sodium (Colace) 100 mg PO BID [facility] Last Admin: 12/08/17 09:25 Dose: 100 mg Gabapentin (Neurontin) 800 mg PO TID [facility] Last Admin: 12/08/17 09:25 Dose: 800 mg Glucagon (Glucagon) 1 mg IM PRN PRN PRN Reason: Hypoglycemia Dextrose/Water (D5w) 1,000 mls @ 0 mls/hr IV .Q0M PRN PRN Reason: Hypoglycemia Insulin Glargine 34 units/ (Miscellaneous Medication) 0.34 mls @ 0 mls/hr SC HS [facility] Last Admin: 12/07/17 21:22 Dose: 0.34 mls Insulin Human Lispro (Humalog) 0 units SC .MILD SLIDING SCALE PRN PRN Reason: Mild Correctional Scale Last Admin: 12/08/17 12:48 Dose: 3 unit Insulin Human Regular (Humulin R) 0 units SC .MILD SLIDING SCALE PRN PRN Reason: Mild Correctional Scale Ketorolac Tromethamine (Toradol) 15 mg IVP Q6H PRN PRN Reason: Moderate Pain (4-6) Stop: 12/10/17 07:48 Last Admin: 12/07/17 18:24 Dose: 15 mg Lactulose (Lactulose) 20 gm PO DAILYPRN PRN PRN Reason: Constipation Last Admin: 12/06/17 14:41 Dose: 20 gm Lorazepam (Ativan) 1 mg SLOW IVP Q4H PRN PRN Reason: Anxiety/Agitation Melatonin (Melatonin) 3 mg PO HSPRN PRN PRN Reason: Insomnia Last Admin: 12/07/17 23:47 Dose: 3 mg Nicotine (Nicoderm Patch) 21 mg TD Q24HR [facility] Last Admin: 12/07/17 22:09 Dose: 21 mg Ondansetron HCl (Zofran Odt) 4 mg PO Q6H PRN PRN Reason: Nausea/Vomiting Last Admin: 12/05/17 08:12 Dose: 4 mg Polyethylene Glycol (Miralax) 17 gm PO DAILY [facility] Last Admin: 12/08/17 09:25 Dose: 17 gm Sodium Chloride (Flush - Normal Saline) 10 ml IVF Q12HR [facility] Last Admin: 12/08/17 09:25 Dose: 10 ml Sodium Chloride (Flush - Normal Saline) 10 ml IVF PRN PRN PRN Reason: Saline Flush
[2017-12-08] MEDS: Ibuprofen 200 MG TAB PO SCH ×2 (17:07→21:03)
[2017-12-08] MEDS: Insulin Glargine 34 UNITS in Pre-Filled Syringe 1 EACH SC SCH (20:27)
[2017-12-08] MEDS: Nicotine 21 MG PATCH TD SCH (20:28)
[2017-12-08] MEDS: Melatonin 3 MG TAB PO PRN (21:02)
[2017-12-09 04:27] LABS: Hemoglobin 9.9 g/dL (14.0-18.0); Platelet Count 310 thou/uL (130-400)
[2017-12-09 04:46] LABS: Calc. Creatinine Clearance 112 mL/min (70-130); Estimated GFR-MDRD Greater than 90
[2017-12-09] MEDS: HumaLOG 300 UNITS/3 ML VIAL SC PRN ×2 (05:14→12:15)
[2017-12-09 08:02] VITALS: BP 117/72; TEMP 98.9
[2017-12-09] MEDS: Apixaban 5 MG TAB PO SCH (08:58)
[2017-12-09] MEDS: Polyethylene Glycol 3350 17 GM Packet PO SCH (08:58)
[2017-12-09] MEDS: busPIRone HCl 5 MG TAB PO SCH (08:59)
[2017-12-09] MEDS: Ibuprofen 200 MG TAB PO SCH ×2 (08:59→15:30)
[2017-12-09] MEDS: Docusate 100 MG CAP PO SCH (08:59)
[2017-12-09] MEDS: Gabapentin 400 MG CAP PO SCH ×2 (08:59→15:30)
--- NOTE | 2017-12-09 11:36 | PDOC.PN ---
- Subjective Encounter Start Date: 12/09/17 Encounter Start Time: 08:45 Subjective: feels better, is sitting in chair, is wearing rolo hose over right leg -: no sob or fever this am - Objective Resuscitation Status: Resuscitation Status FULL:Full Resuscitation MAR Reviewed: Yes Vital Signs & Weight: Vital Signs (12 hours) Temp Pulse Resp BP Pulse Ox 12/09/17 08:00 98.9 F 82 18 98 12/09/17 07:57 98.9 F 82 18 117/72 98 12/09/17 04:00 98.7 F 12/09/17 00:27 98.4 F Weight Weight 210 lb 6.4 oz I&O: 12/08/17 12/09/17 12/10/17 06:59 06:59 06:59 Intake Total 1320 2520 480 Output Total 325 550 Balance 995 1970 480 Result Diagrams: 12/09/17 03:35 12/09/17 03:35 Additional Labs: Accuchecks 12/09/17 12/08/17 12/08/17 04:42 19:25 16:52 POC Glucose 201 H 288 H 230 H 12/08/17 11:18 POC Glucose 235 H Phys Exam - Physical Examination HEENT: PERRLA, moist MMs Neck: no JVD, supple Respiratory: no wheezing, no rales Cardiovascular: RRR, no significant murmur Gastrointestinal: soft, non-tender, positive bowel sounds Musculoskeletal: pulses present, edema present Neurological: non-focal, moves all 4 limbs Psychiatric: normal affect, A&O x 3 Dx/Plan (1) DVT (deep venous thrombosis) Code(s): I82.409 - ACUTE EMBOLISM AND THOMBOS UNSP DEEP VN UNSP LOWER EXTREMITY Status: Acute Qualifiers: DVT location: lower extremity Affected thrombotic vein of extremity: iliac Chronicity: acute Laterality: bilateral Qualified Code(s): I82.423 - Acute embolism and thrombosis of iliac vein, bilateral (2) ivc filter with thrombosis Status: Acute (3) Left adrenal mass Code(s): E27.9 - DISORDER OF ADRENAL GLAND, UNSPECIFIED Status: Acute Comment: has b/l adrenal adenomas per MRI (4) DM type 2 (diabetes mellitus, type 2) Status: Chronic Qualifiers: Diabetes mellitus career development manager insulin use: without career development manager use Diabetes mellitus complication status: with unspecified complications Qualified Code(s) : E11.8 - Type 2 diabetes mellitus with unspecified complications (5) Tobacco abuse Code(s): Z72.0 - TOBACCO USE Status: Chronic - Plan on eliquis -: wants all his meds with 1 time refill as he is trying to get pcp in [facility] [place]. -: counselled reg activity -: dc pt home * .
--- NOTE | 2017-12-10 00:24 | DIS ---
DATE OF ADMISSION: 12/05/2017 DATE OF DISCHARGE: 12/09/2017 DISCHARGE DISPOSITION: To home. PRIMARY DISCHARGE DIAGNOSES: Right lower extremity deep venous thrombosis with complete occlusion of IVC filter, incidental finding of bilateral adrenal adenomas. SECONDARY DISCHARGE DIAGNOSES: Diabetes mellitus type 2, tobacco abuse. PROCEDURES DONE DURING HOSPITALIZATION: CT chest without contrast done showed chronic lung changes, old granulomatous disease. No mediastinal adenopathy or mass. A 3 cm diameter left adrenal mass was incidentally seen. CT of the abdomen and pelvis with IV contrast done showed thrombosis of the iliac veins and inferior vena cava to the level of the filter just below the level of the renal veins, left adrenal mass metastatic versus primary neoplasm could not be excluded. MRI of the abdomen done showed bilateral adrenal adenomas, 7 mm cyst in the tail of pancreas, which needs follow up in 6-7 months. H&H 10 and 29, platelet count 310. MCV is 93. Discharge creatinine is 0.9. DISCHARGE MEDICATIONS: Eliquis 10 mg twice daily for another 5 days, then 5 mg twice daily for 83 days, aspirin 81 mg daily, buspirone 5 mg daily, Colace 100 mg twice daily, MiraLax 17 grams daily, gabapentin 800 mg 3 times daily, Motrin p.r.n. for pain, Levemir 34 units subcu at bedtime, Levaquin 500 mg p.o. daily for another 4 days for urinary tract infection, metformin 1000 mg p.o. daily. ALLERGIES: No known drug allergies. DISCHARGE PLAN: The patient to follow up with primary care physician in 1 week. BRIEF COURSE DURING HOSPITALIZATION: The patient initially came to ER with complaints of right lower extremity pain and swelling. He had known history of DVT in 2011 with IVC filter placed due to his C-spine surgery and myelopathy. The patient did not have any issues up until now when he developed progressive right lower extremity swelling and pain. Initial CT with IV contrast of the abdomen done showed complete occlusion of IVC up until the filter and he also had a thrombosis of the iliac veins. The patient was placed on Lovenox and has been transitioned to Eliquis for the same. His right lower extremity swelling and pain is receding slowly. He is able to ambulate well in the hallway. His CT scan incidentally showed adrenal mass and abdominal MRI. Urology consultation with Dr. Kalia Parker was obtained. He has had subsequent abdominal MRI adrenal protocol done, which showed the findings to be adrenal adenoma. He is hemodynamically stable and will be shortly discharged home. The patient recently moved from [facility] and is trying to find a primary care physician in the area. Prescriptions for all of his medications were sent with one refill and hopefully by then he can find a primary care physician. Please note patient needs to continue Eliquis for at least 3 months and likely thereafter if he continues to have the DVT and swelling in his extremities, this needs to be reassessed in 3 months by primary care physician for further continuation of anticoagulation. Please see a [id number] documentation on [facility] for the day of discharge. MTDD
== END 2017-12-09 17:52 | disposition home or self-care (01) | DRG 301 ==
LOC: ERS 18:09 → 2SW 23:27 → OBSVTOIN 12-05 10:45 → T4-A 12-05 13:55
PROVIDERS: ADMIT Internal Medicine; ATTEND Internal Medicine
DX: I82.423 Acute embolism and thrombosis of iliac vein, bilateral (principal); Z86.718 Personal history of other venous thrombosis and embolism; E11.9 Type 2 diabetes mellitus without complications; G89.29 Other chronic pain; F17.210 Nicotine dependence, cigarettes, uncomplicated; Z79.84 Long term (current) use of oral hypoglycemic drugs; K59.00 Constipation, unspecified; D35.02 Benign neoplasm of left adrenal gland
CPT/HCPCS: 36415; 36416; 71250; 74177; 74183; 80048; 82553; 82565; 83880; 84484; 85014; 85018; 85025; 85049; 85610; 85730; 87086; 96374; A4216; G8981-GP-CM; G8982-GP-CJ; J1650; J1885; J2270; Q0162

== ENCOUNTER 2018-01-12 15:08 | Outpatient (CLI) | payer MEDICARE, MEDICAID ==
--- NOTE | 2018-01-12 17:03 | CT ---
CERVICAL SPINE CT NONCONTRAST: CLINICAL INDICATION: Cervical radiculopathy. FINDINGS: There is multilevel anterior metallic fusion spanning C3 through C7 with anterior metal plate and 2 v ertebral body screws at the C3, 4, 5, 6, and 7 segments. Intradiskal space devices are seen at C3-4, C4-5, and C5-6 levels. There is punctate hyperdensity of the ventral aspect of the C6-7 disk space. There is no significant osseous compromise of the central canal at the C1-2 or C2-3 level. C2-3 leve l neural foramen are patent. C3-4: C3 vertebral body screws are inferiorly angulated and do approximate the posterior aspect of t he disk space, more so on the right. There is mild osseous compromise of the central canal and bilat eral neural foramina. C4-5: There is mild osseous narrowing of the central canal due to broad-based osteophyte. There is minimal osseous encroachment upon each neural foramen. C5-6: Left asymmetric broad-based osteophyte is present with mild osseous compromise of the central canal and mild left foraminal stenosis. No significant right foraminal narrowing. C6-7: Broad-based osteophyte results in moderate narrowing of the central canal, and moderate bilate ral osseous compromise of each neural foramen. C7-T1: There is mild osseous compromise of the central canal and right neural foramen. No high-grad e left foraminal stenosis. There is a mild right convexity curvature of the cervical spine. Partial osseous fusion, bilaterally , involves the lateral confines of the anterior vertebral column of c4-5 and C5-6 levels. IMPRESSION: Multilevel anterior fusion of the cervical spine. There is multilevel degenerative change as outline d above, limited by noncontrast CT technique. If there is need for further assessment, consider myel ogram of the cervical spine as clinically indicated. POS: [facility]
== END 2018-01-12 15:09 | disposition home or self-care (01) ==
LOC: TBSIIMAG 15:08
PROVIDERS: ATTEND Neurological Surgery
DX: M47.22 Other spondylosis with radiculopathy, cervical region (principal); Z98.1 Arthrodesis status
CPT/HCPCS: 72125

== ENCOUNTER 2018-01-13 09:00 | Outpatient (CLI) | payer MEDICARE, OTHER ==
[~2018-01-13 09:00] MED LIST changes: -ISOVUE-370 76%-LOCM 1 ML ONE; +Sodium Chloride 0.9% 15 ML NEB ONE
--- NOTE | 2018-01-13 13:22 | HP ---
DATE OF ADMISSION: 01/13/2018 HISTORY OF PRESENT ILLNESS: Mr. Trent Ruffin is a 57-year-old gentleman who presents to the [facility] for evaluation of edema of the right lower extremity, which the patient states bega n 6 months ago. The patient was discharged from [facility] on 12/09/2017 afte r admission for right lower extremity deep venous thrombosis with complete occlusion of his IVC filte r. The patient was discharged to home on Eliquis. The patient also complains of pain of the plantar surface of his right and left feet with ambulation, stating he has never been fitted with a pair of diabetic shoes with inserts. PAST MEDICAL HISTORY: 1. Diabetes mellitus. 2. Recurrent deep venous thrombosis. PAST SURGICAL HISTORY: 1. Back surgery in 2007 and 2008. 2. Right ankle surgery. 3. IVC filter placement. MEDICATIONS: Eliquis. ALLERGIES: No known diagnosed allergies. SOCIAL HISTORY: Significant for tobacco use of 1/2 of a pack of cigarettes per day. The patient den ies any current ETOH use. FAMILY HISTORY: Significant for coronary artery disease. The patient states that his mother was yumiko gnosed with coronary artery disease. PHYSICAL EXAMINATION: VITAL SIGNS: Temperature 97.8, pulse 72, respirations 18, blood pressure 117/84. Accu-Chek 171. GENERAL: A 57-year-old gentleman, sitting on chair in examination room, in no acute distress. HEENT: Normocephalic, atraumatic. NECK: No nuchal rigidity. CHEST: Clear to auscultation. CARDIOVASCULAR: Regular rate and rhythm. ABDOMEN: Soft. EXTREMITIES: No open wounds are present over the right or left lower extremities. Edema of the righ t and left lower extremities is present. Circumferences of the right and left lower extremities are as follows: Circumferences of the right lower extremity at the ankle, calf and knee are 31.5 cm, 45. 5 cm and 44 cm. Circumferences of the left lower extremity at the ankle, calf and knee are 31 cm, 44 cm and 42 cm. ASSESSMENT AND PLAN: 1. Lymphedema tarda. Arrangements will be made for the initiation of in-home lymphedema therapy wit h the use of a pneumatic pump today. Webril and the [email or web address] Coban 2-layer compression system will be appl ied to the right foot and lower leg without tension. The patient will return to clinic on 01/28/2018 and at this time, arrangements will continue for treatment in the home setting with a pneumatic pump . The patient understands and is in agreement with the preceding treatment plan. 2. Diabetes mellitus. The patient's Accu-Chek in clinic today is 171. Arrangements will also be ma de for the patient to be seen by the senior telecommunications engineer for fitting with diabetic shoes with inserts. 3. Recurrent deep venous thrombosis.
== END 2018-01-13 09:01 | disposition home or self-care (01) ==
LOC: WCC 09:00
PROVIDERS: ATTEND Family Medicine
DX: I89.0 Lymphedema, not elsewhere classified (principal); E11.9 Type 2 diabetes mellitus without complications; I82.401 Acute embolism and thrombosis of unspecified deep veins of right lower extremity
CPT/HCPCS: 36416; A4218

== ENCOUNTER 2018-01-28 09:00 | Outpatient (CLI) | payer MEDICARE, OTHER ==
--- NOTE | 2018-01-28 13:26 | PRG ---
DATE OF SERVICE: 01/28/2018 HISTORY: Mr. Trent Ruffin is a 57-year-old gentleman who presents to the Wound Center for evaluation of edema of the right lower extremity which the patient stated began 6 months prior to the patient's initial presentation to the Wound Center. The patient was discharged from [facility] on 12/09/2017 after admission for right lower extremity deep venous thrombosis with complete occlusion of his IVC filter. The patient was discharged to home on Eliquis. After being seen in the Wound Center, Webril, and 3M Coban 2 layer compression system without tension were applied to the right foot and lower leg. The patient states he was able to tolerate 3M Coban 2 layer compression system for 3 days before removing the compression wrap. PHYSICAL EXAMINATION: VITAL SIGNS: Temperature 97.5, pulse 94, respirations 18, blood pressure 138/79 , temperature 97.5, pulse 94, respirations 18, blood pressure 138/79. EXTREMITIES: No open wounds are present over the right or left lower extremity. Edema of the right and left lower extremities is noted on exam today. Circumferences of the right and left lower extremities are as follows: Circumferences of the right lower extremity at the ankle, calf and knee are 40 cm, 45.5 cm, and 30 cm. Circumferences of the left lower extremity at the ankle , calf and knee are 30 cm, 43.5 cm, and 28 cm. Hyperpigmentation of the skin of the right and left lower extremities is present. ASSESSMENT AND PLAN: 1. Lymphedema tarda. Arrangements will continue for the initiation of in-home lymphedema therapy with the use of a pneumatic pump. I will see Mr. Ruffin again on 02/25/2018 and at this time, arrangements will continue for the acquisition of a pneumatic pump. The patient understands and is in agreement with the preceding treatment plan. 2. Diabetes mellitus. Arrangements will also be made for the patient to be seen by the veterinary receptionist for fitting with diabetic shoes with inserts. 3. Recurrent deep venous thrombosis. MTDD
== END 2018-01-28 09:01 | disposition home or self-care (01) ==
LOC: WCC 09:00
PROVIDERS: ATTEND Family Medicine
DX: I89.0 Lymphedema, not elsewhere classified (principal); E11.9 Type 2 diabetes mellitus without complications; I82.409 Acute embolism and thrombosis of unspecified deep veins of unspecified lower extremity
CPT/HCPCS: 29581

== ENCOUNTER 2018-12-09 19:30 | Outpatient (CLI) | payer MEDICARE, MEDICAID | END 2018-12-09 19:31 | disposition home or self-care (01) | LOC: SLEEPLAB 19:30 | PROVIDERS: ATTEND Family Medicine | DX: G47.9 Sleep disorder, unspecified (principal); G47.33 Obstructive sleep apnea (adult) (pediatric); R53.83 Other fatigue; G47.00 Insomnia, unspecified; F41.9 Anxiety disorder, unspecified; E11.9 Type 2 diabetes mellitus without complications; R06.83 Snoring; G47.10 Hypersomnia, unspecified | CPT/HCPCS: 95810 ==

== ENCOUNTER 2019-01-06 20:30 | Outpatient (CLI) | payer MEDICARE, MEDICAID | END 2019-01-06 20:31 | disposition home or self-care (01) | LOC: SLEEPLAB 20:30 | PROVIDERS: ATTEND Family Medicine | DX: G47.33 Obstructive sleep apnea (adult) (pediatric) (principal); R53.83 Other fatigue; F41.9 Anxiety disorder, unspecified; E11.9 Type 2 diabetes mellitus without complications | CPT/HCPCS: 95811 ==

== ENCOUNTER 2019-04-13 07:06 | Outpatient (CLI) | payer MEDICARE, MEDICAID ==
[2019-04-13 13:34] LABS: #Basophils 0.1 thou/uL (0.0-0.2); #Eosinphils 0.2 thou/uL (0.0-0.7); #Lymphocytes 2.8 thou/uL (1.20-3.40); #Monocytes 0.3 thou/uL (0.11-0.59); #Neutrophils 2.8 thou/uL (1.40-6.50); %Basophils 1.9 % (0.0-1.0); %Eosinophils 3.5 % (0.0-10.0); %Monocytes 5.5 % (0.0-10.0); %Neutrophils 44.1 % (42.0-75.0); Hemoglobin 13.1 g/dL (14.0-18.0); Mean Corpuscular HGB CONC 33.4 g/dL (32.0-36.0); Mean Corpuscular Hemoglobin 32.5 pg (27.0-31.0); Mean Corpuscular Volume 97.3 fL (78.0-98.0); Mean Platelet Volume 8.5 fL (7.4-10.4); Platelet Count 217 thou/uL (130-400); RBC Distribution Width 13.4 % (11.5-14.5); Red Blood Cell (RBC) Count 4.04 mill/uL (4.70-6.10); White Blood Cell (WBC) Count 6.3 thou/uL (4.8-10.8)
[2019-04-13 13:54] LABS: Anion Gap 14 mmol/L (10-20); BUN (Urea Nitrogen) 21 mg/dL (8.4-25.7); Calc. Creatinine Clearance 0 mL/min (70-130); Calcium 9.4 mg/dL (7.8-10.44); Carbon Dioxide 24 mmol/L (22-29); Chloride 104 mmol/L (98-107); Estimated GFR-MDRD 68; Glucose 250 mg/dL (70-105); Potassium 4.3 mmol/L (3.5-5.1); Sodium 138 mmol/L (136-145)
== END 2019-04-13 07:07 | disposition home or self-care (01) ==
LOC: LABBT 07:06
PROVIDERS: ATTEND Neurological Surgery
DX: Z01.812 Encounter for preprocedural laboratory examination (principal); G56.21 Lesion of ulnar nerve, right upper limb
CPT/HCPCS: 80048; 85025

== ENCOUNTER 2019-04-18 06:19 | Day surgery (SDC) | payer MEDICARE, MEDICAID ==
[2019-04-13 11:31] VITALS: BMI 30.5
--- NOTE | 2019-04-17 16:16 | HP ---
HISTORY OF PRESENT ILLNESS: Mr. Ruffin is a pleasant 58-year-old man, referred to us by Dr. Justice's office for right upper extremity pain, numbness and weakness that seems to fit quite well. The history and pattern of ulnar neuropathy that affects the right ulnar aspect of the forearm as well as the 4th and 5th digit of the right hand. Some of the intrinsic musculatures of the hand are also somewhat atrophied. He hopes to discuss surgical intervention to improve some of the symptoms that he is experiencing. PAST MEDICAL HISTORY: Includes chronic neck and back pain, hyperlipidemia, diabetes, and coronary artery disease. CURRENT MEDICATIONS: Eliquis, metformin, atorvastatin, Levemir, [place], and Neurontin. PAST SURGICAL HISTORY: Cervical spinal fusion; lumbar diskectomy; and right leg arterial surgery, unspecified. ALLERGIES: NO KNOWN DRUG ALLERGIES. PHYSICAL EXAMINATION: He is alert and oriented x3. Gait is normal. No ataxia. He has excellent strength in the left upper extremity with sensation intact. 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 ASSESSMENT: Right ulnar neuropathy. PLAN: Dr. Monahan met with the patient, reviewed imaging, and advocated for right ulnar nerve decompression. He explained to the patient, the risks, benefits, and alternatives to the procedure. The patient expressed understanding and elected to move forward with surgery as discussed. I do believe the patient is mentally competent and capable of making medical decisions for himself. We will move forward with surgery as planned. Job ID: [id number]
[2019-04-18] MEDS ORDERED: Fentanyl 100 MCG/2 ML VIAL ONE (08:34)
[2019-04-18] MEDS ORDERED: Lidocaine 1% w/Epinephrine 1:100K 30 ML VIAL ONE (09:13)
[2019-04-18] MEDS ORDERED: Lidocaine 1% PF 5 ML VIAL ONE (09:35)
[2019-04-18] MEDS ORDERED: PROPOFOL 200 MG/20 ML VIAL ONE (09:35)
[2019-04-18] MEDS ORDERED: Ketorolac Tromethamine 30 MG/ML VIAL ONE (09:35)
[2019-04-18] MEDS ORDERED: Succinylcholine Chloride 20 MG/ML 10 ml SYRINGE FS ONE (09:35)
[2019-04-18] MEDS ORDERED: Ondansetron PF 4 MG/2 ML Vial ONE (09:35)
[2019-04-18] MEDS ORDERED: Dexamethasone 20 MG/5 ML VIAL ONE (09:35)
--- NOTE | 2019-04-18 11:53 | OP ---
DATE OF PROCEDURE: 04/18/2019 MEDICAL ACCOUNTING CLERK: Breezy Marcelo PA-C INDICATION: Pain and prevent neurologic decline. DIAGNOSIS: Right ulnar neuropathy. PROCEDURE PERFORMED: Right ulnar nerve decompression. ANESTHESIA: General. DESCRIPTION OF PROCEDURE: The patient was brought into the operating room, placed under general anesthesia. He was placed on table in supine position. His right arm was prepped up to the level of the axilla. After prepping and draping and after an appropriate operative pause, a linear incision was planned across the elbow in-line with the long axis of the ulnar nerve. This area was infiltrated with lidocaine with epinephrine for hemostasis and analgesic purposes. An incision was then created. A self-retaining retractor was placed. The ulnar nerve was palpated and identified and adhesiolysis performed around it. The wound was then irrigated. Hemostasis was maintained throughout. The wound was then closed in anatomic layers and a pressure dressing was applied. There were no known procedural complications. Job ID: [id number]
== END 2019-04-18 12:30 | disposition home or self-care (01) ==
LOC: SDC 06:19
PROVIDERS: ATTEND Neurological Surgery
PROC: 01N40ZZ Release Ulnar Nerve, Open Approach (ICD-10-PCS; principal; 2019-04-18)
DX: G56.21 Lesion of ulnar nerve, right upper limb (principal); G89.29 Other chronic pain; M54.2 Cervicalgia; M54.9 Dorsalgia, unspecified; E78.5 Hyperlipidemia, unspecified; I25.10 Atherosclerotic heart disease of native coronary artery without angina pectoris; E11.9 Type 2 diabetes mellitus without complications; Z79.01 Long term (current) use of anticoagulants; Z79.4 Long term (current) use of insulin; Z79.82 Long term (current) use of aspirin; Z79.899 Other long term (current) drug therapy; Z98.1 Arthrodesis status
CPT/HCPCS: 36416; J0690; J2001; J3010

== ENCOUNTER 2019-09-19 22:56 | Observation (INO) | payer MEDICARE, MEDICAID ==
[2019-09-20 01:26] LABS: Troponin I 0.011 ng/mL (< 0.028)
[2019-09-20] MEDS ORDERED: Dextrose 50% Abboject 50 ML SYRINGE SLOW IVP PRN (02:20)
[2019-09-20] MEDS ORDERED: HumaLOG 300 UNITS/3 ML VIAL SC PRN ×2 (02:20)
[2019-09-20] MEDS ORDERED: Dextrose 5% in Water 1,000 ML IV PRN (02:20)
--- NOTE | 2019-09-20 02:26 | HP ---
PRIMARY CARE PHYSICIAN: Jalen Sawyer MD CHIEF COMPLAINT: "Chest pain that made my arm go numb." HISTORY OF PRESENT ILLNESS: The patient is a 58-year-old male with past medical history significant for diabetes type 2, hyperlipidemia, and a blood clot that extended "through the entire left side of his body". He presents to the ER today after he experienced chest pain while sitting at home watching TV. He stated that it radiated to his left axilla and left arm and he was diaphoretic during that incident and also short of breath. He states that this pain has been coming on and off for the past three weeks and it would resolve after chewing an aspirin 81 mg and taking a Tylenol extra strength. After that they gave him four nitroglycerin in the ER it seemed to alleviate the chest pain. He reports that he had a cardiac stress test earlier this year, approximately 4-5 months ago, which was unremarkable. He had to have it prior to his elbow surgery. He does state that he sees Dr. Blanco as his beverage manager, but due to the [facility] restrictions, he has been unable to see him recently. The patient was seen in the ER first in [place] today. En route to the ER with EMS, he was given 3 doses of sublingual nitroglycerin, which did improve the chest pressure and then he was given another dose in the ER along with a 325 mg aspirin. An EKG was completed along with a chest x-ray. The patient was then transferred over to [facility]. PAST MEDICAL HISTORY: Diabetes type 2, hyperlipidemia, neuropathy, DVT history in 2018. PAST SURGICAL HISTORY: Had a back surgery with chronic back pain. Filters placed for blood clots and elbow surgery approximately four months ago. ALLERGIES: NO KNOWN DRUG ALLERGIES. MEDICATIONS: Will be reconciled once to the floor. SOCIAL HISTORY: The patient lives alone. He is currently seeking disability status. He smokes a half a pack to one pack per day of cigarettes. He drinks occasionally and he does marijuana daily. Denies any other illegal drugs. FAMILY HISTORY: Mother was positive for congestive heart failure and from heart disease. REVIEW OF SYSTEMS: All other review of systems are negative unless noted in the HPI. PHYSICAL EXAMINATION: VITAL SIGNS: Blood pressure 116/68, pulse 69, respiratory rate 18, temperature 97.9, 98% on room air. GENERAL: The patient appears nontoxic. Pain level of 3 currently. Alert and oriented to person, place, and time. HEENT: Head, normocephalic and atraumatic. Eyes, PERRLA. Extraocular muscles intact. NECK: Trachea midline. No lymphadenopathy. RESPIRATORY: Clear to auscultation bilaterally. No rales, no rhonchi. No wheezes. CARDIOVASCULAR: Regular rate and rhythm. No murmurs, no gallops, no rubs. ABDOMEN: Bowel sounds normal. No distention. No guarding. Nontender. EXTREMITIES: Lower extremities, no edema. Peripheral pulses intact. NEURO: The patient is alert and oriented. PSYCH: Normal affect. Normal behavior. LABORATORY DATA: In [place], white blood cells 5.5, hemoglobin 12.1, hematocrit 38.8. D-dimer less than 0.27. Sodium 142, potassium 3.9, BUN 16, creatinine 1.08, GFR 85, glucose 168, calcium 8.8. Two troponins negative at this time. We will continue to trend him. Chest x-ray showed minimally increased density in the lung bases, possibly just overlying soft tissue. EKG showed normal sinus rhythm, pulse 74. IMPRESSION AND PLAN: 1. Unstable angina. The patient is intermittently having this pain on and off for the past 3 weeks including while at rest. He states he has recently had a stress test less than half a year ago, which was necessary before his surgery. We will consult his beverage manager, Dr. Blanco, in the morning. Continue to trend his troponins overnight and monitor him on telemetry. 2. Hyperlipidemia. We will continue the patient's home medications. 3. Chronic pain. We will continue patient's home medications and continue to monitor patient. 4. Gastrointestinal and deep vein thrombosis prophylaxis. The patient is on Eliquis and has been compliant with his medications. The patient will be put on protonix daily for gastrointestinal prophylaxis. 5. The patient wishes to be a full code. His surrogate decision maker will be his brother, David, phone number [phone]. Job ID: [id number] MTDD
[2019-09-20] MEDS ORDERED: Sodium Chloride 0.9% 1,000 ML IV SCH (02:30)
[2019-09-20] MEDS ORDERED: HYDROcodone/Acetaminophen 10/325 mg Tablet PO PRN (03:10)
[2019-09-20 03:16] LABS: Bacteria/HPF None Seen HPF (None Seen); Mucous/LPF 3+ LPF (<2+); Squamous Epithelial 0-3 HPF (0-3); WBC/HPF 0-3 HPF (0-3)
[2019-09-20 03:21] LABS: Amphetamine Not Detected (NotDetected); Barbiturates Screen Not Detected (NotDetected); Benzodiazepine Screen Not Detected (NotDetected); Cocaine Metabolite Screen Detected (NotDetected); Medtox Control Line Valid? VALID (VALID); Medtox Reader # READER 4; Methadone Not Detected (NotDetected); Methamphetamine Not Detected (NotDetected); Opiate Screen Not Detected (NotDetected); Oxycodone Screen Not Detected (NotDetected); Phencyclidine (PCP) Not Detected (NotDetected); THC/Cannabinoid Screen Detected (NotDetected); Tricyclic Screen Not Detected (NotDetected)
[2019-09-20 03:26] LABS: #Basophils 0.1 thou/uL (0.0-0.2); #Eosinphils 0.2 thou/uL (0.0-0.7); #Lymphocytes 2.7 thou/uL (1.20-3.40); #Monocytes 0.5 thou/uL (0.11-0.59); #Neutrophils 2.4 thou/uL (1.40-6.50); %Basophils 1.4 % (0.0-1.0); %Eosinophils 3.3 % (0.0-10.0); %Monocytes 8.7 % (0.0-10.0); %Neutrophils 40.7 % (42.0-75.0); Hemoglobin 11.9 g/dL (14.0-18.0); Mean Corpuscular HGB CONC 33.6 g/dL (32.0-36.0); Mean Corpuscular Hemoglobin 32.5 pg (27.0-31.0); Mean Corpuscular Volume 96.7 fL (78.0-98.0); Mean Platelet Volume 7.6 fL (7.4-10.4); Platelet Count 189 thou/uL (130-400); RBC Distribution Width 13.6 % (11.5-14.5); Red Blood Cell (RBC) Count 3.66 mill/uL (4.70-6.10); White Blood Cell (WBC) Count 5.8 thou/uL (4.8-10.8)
[2019-09-20 03:28] VITALS: TEMP 97.9; BMI 27.8
[2019-09-20 03:34] LABS: Hemoglobin A1c 9.2 % (4.0-6.0)
[2019-09-20 03:48] LABS: Anion Gap 11 mmol/L (10-20); BUN (Urea Nitrogen) 18 mg/dL (8.4-25.7); Calc. Creatinine Clearance 115 mL/min (70-130); Calcium 8.7 mg/dL (7.8-10.44); Carbon Dioxide 25 mmol/L (22-29); Cardiac Risk 2.3 (Less than 4.5); Chloride 108 mmol/L (98-107); Cholesterol 159 mg/dl (< 200 Desired); Estimated GFR-MDRD Greater than 90; Glucose 139 mg/dL (70-105); HDL Cholesterol 69 mg/dL (>60 Neg Risk); LDL Cholesterol, Calculated 82 mg/dL; Magnesium 1.9 mg/dL (1.6-2.6); Potassium 3.9 mmol/L (3.5-5.1); Sodium 140 mmol/L (136-145); Triglycerides 40 mg/dL (Less than 150)
[2019-09-20 03:53] LABS: Troponin I Less than 0.010 ng/mL (< 0.028)
[2019-09-20 07:49] VITALS: BP 130/80
[2019-09-20] MEDS ORDERED: Regadenoson 0.4 MG/5 ML SYRINGE ONE (09:17)
[2019-09-20] MEDS ORDERED: Apixaban 5 MG TAB PO SCH ×2 (12:15→21:00)
--- NOTE | 2019-09-20 13:00 | CON ---
DATE OF CONSULTATION: HISTORY OF PRESENT ILLNESS: The patient is a 58-year-old gentleman, who presents for evaluation of chest discomfort. The patient has a history of peripheral vascular disease. In 2018, he presented with deep venous thrombosis and he had placement of an IVC filter. The patient also has undergone an atherectomy of his right lower extremity. In 2019, the patient was in usual state of health when he was using illicit drugs and started developing chest discomfort. He states for the past few weeks, he has been using cocaine. During the past 3 weeks, he has used cocaine. He has developed midsternal chest discomfort. This lasts approximately 30 to 40 minutes. It is not associated with diaphoresis or dyspnea. PAST MEDICAL HISTORY: 1. Peripheral vascular disease. 2. DVT. 3. Diabetes mellitus. 4. Dyslipidemia. PAST SURGICAL HISTORY: Back surgery, neck surgery, and ankle surgery. SOCIAL HISTORY: Smokes half pack per day. Uses illicit drugs. FAMILY HISTORY: Strong family history of coronary artery disease. ALLERGIES: NO KNOWN DRUG ALLERGIES. MEDICATIONS: 1. Eliquis 5 b.i.d. 2. Levemir 100 units daily. 3. Metformin 1000 daily. 4. Gabapentin 800 daily. 5. Lipitor 20 at bedtime. REVIEW OF SYSTEMS: Ten-point system otherwise unremarkable. PHYSICAL EXAMINATION: GENERAL: A well-developed gentleman, in no acute distress. VITAL SIGNS: Blood pressure 130/80. NECK: No jugular venous distention. LUNGS: Clear to auscultation. HEART: Regular rate and rhythm. Normal S1 and S2. ABDOMEN: Nondistended. EXTREMITIES: Show no edema. VASCULAR: Radial pulses are 2+. LABORATORY DATA: White blood cell count 5.8, hemoglobin 11.9, hematocrit 34.4, and platelets 189. Sodium is 140, potassium 3.9, chloride 108, bicarbonate 25, BUN 18, creatinine 0.96, and glucose is 139. Tox screen was positive for cocaine and cannabinoids. IMPRESSION: 1. Chest pain suggestive of angina. 2. Peripheral vascular disease. 3. History of deep venous thrombosis. 4. Diabetes mellitus. 5. Dyslipidemia. 6. Illicit drug use. PLAN: This gentleman presents with chest pain suggestive of angina. He has been using illicit drugs. From a cardiac standpoint, we would recommend stress testing to see if there are evidence of ischemia. We will follow this patient with you through his hospitalization. Job ID: [id number] [facility]
--- NOTE | 2019-09-20 15:23 | NM ---
NUCLEAR MEDICINE CARDIAC MYOCARDIAL PERFUSION SPECT EJECTION FRACTION STUDY WALL MOTION CINE: DATE: 09/20/2019 HISTORY: 58 year old male smoker with diabetes mellitus and family history of coronary artery disease presents with chest pain TECHNIQUE: Number of days: 1 Rest study: Technetium 99m-sestamibi (Cardiolite) dose: 10.3 mCi Pharmacologic stress: Lexiscan dose: 0.4 mg Stress study: Technetium 99m-sestamibi (Cardiolite) dose: 28.8 mCi FINDINGS: CARDIAC (MYOCARDIAL PERFUSION) SPECT Distribution of sestamibi is homogeneous throughout the left ventricle, with no fixed or reversible m yocardial perfusion defects. EJECTION FRACTION STUDY Left ventricular EF = 62 % WALL MOTION CINE The left ventricular wall motion is normal. There is normal systolic wall thickening. IMPRESSION: Normal.
--- NOTE | 2019-09-20 19:06 | DIS ---
DATE OF ADMISSION: 09/20/2019 DATE OF DISCHARGE: 09/20/2019 DISCHARGE DIAGNOSES: As of the followin. Chest pain. 2. Substance abuse. 3. Hyperlipidemia. 4. Deep venous thromboses in the past. HOSPITAL COURSE: The patient is a 58-year-old male, who initially presented to the hospital with complaints of chest pain. At this time, he was found to be cocaine positive. His troponins x3 were negative. He was seen by Cardiology, underwent a stress test which was normal. He will be discharged home. He will follow up with Cardiology as outpatient. HOME MEDICATIONS: 1. Lipitor 20 mg at bedtime. 2. Aspirin 81 mg daily. 3. Eliquis 5 mg twice a day. 4. Levemir 30 units at bedtime. 5. Metformin 1000 mg twice a day. PHYSICAL EXAMINATION: VITAL SIGNS: Temperature 97.9, 62, 14, 100% on room air, 130/70. GENERAL: He is awake, alert, and oriented x3. Does not appear in distress. CV: S1, S2 present. No murmurs, rubs, or gallops. ABDOMEN: Soft and nontender. Bowel sounds are present x2. Again, he will be discharged home. He will follow up with his primary and also he has an appointment with Cardiology. Job ID: [id number]
[2019-09-20] MEDS ORDERED: Atorvastatin Calcium 20 MG TAB PO SCH (21:00)
[2019-09-20] MEDS ORDERED: Non-Formulary Item 1 EACH (Insulin Detemir [Levemir] 30 UNITS) SQ SCH (21:00)
[2019-09-20] MEDS ORDERED: Insulin Glargine 30 UNITS in Pre-Filled Syringe 1 EACH SC SCH (21:00)
[2019-09-21] MEDS ORDERED: Aspirin Chewable 81 MG TAB PO SCH (09:00)
[2019-09-26] MEDS ORDERED: Apixaban 5 MG TAB PO SCH (09:00)
== END 2019-09-20 16:15 | disposition home or self-care (01) ==
LOC: ERS 22:56 → 2NO 09-20 00:04
PROVIDERS: ADMIT Internal Medicine; ATTEND Internal Medicine
DX: R07.89 Other chest pain (principal); F12.10 Cannabis abuse, uncomplicated; F14.10 Cocaine abuse, uncomplicated; F17.210 Nicotine dependence, cigarettes, uncomplicated; E78.5 Hyperlipidemia, unspecified; E11.40 Type 2 diabetes mellitus with diabetic neuropathy, unspecified; G89.29 Other chronic pain; M54.9 Dorsalgia, unspecified; E11.51 Type 2 diabetes mellitus with diabetic peripheral angiopathy without gangrene; Z86.718 Personal history of other venous thrombosis and embolism; Z79.01 Long term (current) use of anticoagulants; Z79.4 Long term (current) use of insulin; Z79.82 Long term (current) use of aspirin; Z79.899 Other long term (current) drug therapy
CPT/HCPCS: 78452; 80048; 80061; 80306; 81015; 82962 ×2; 83036; 83735; 84443; 84484 ×2; 85025; 93017; 93306; 99285; A9500; 36415; 36416; G0378; J1815; J2785